=== PATIENT | male | born 2000 | race Two or more races ===

== ENCOUNTER 2025-05-20 05:46 | Emergency (ER) | payer MEDICAID, SELFPAY ==
[2025-05-20 05:48] VITALS: BMI 27.3
[2025-05-20 06:02] VITALS: BP 152/90; PULSE 96; RESP 18; TEMP 36.8; O2SAT 97
--- NOTE | 2025-05-20 06:21 | XR_ITS ---
Study: Abdomen pelvis CT. INDICATION: Mid abdominal pain for 5 days. TECHNIQUE: 3 mm slice thickness without contrast. 3 mm sagittal and coronal reformats. 2 mm axial reformats. Radiation dose 3 7 2 mGy centimeters with dose reduction technique. 1573 images at 0752 hours 20 May 2025. FINDINGS: The patient was imaged from the base of the heart to the subtrochanteric regions. The heart, lung bases and pleural spaces are normal. There is a small sliding hiatal hernia. The stomach, duodenum, small bowel, appendix and colon are morphologically normal. Minimal fluid is in the urinary bladder and wall thickness cannot be assessed accurately. The prostate gland is normal in size. Spinal alignment is normal. There is no loss of disc height or vertebral fracture. No sclerotic or lytic lesion is observed. The aorta and inferior vena cava are normal in caliber. There is no aortic plaque burden. IMPRESSION: 1. No acute diagnostic abnormality of the abdomen or pelvis. 2. Sliding hiatal hernia.
[2025-05-20 06:34] LABS: Collection Type, Urine Clean Catch; Squamous Epithelial Cell,Urine 0 /hpf (0-5)
[2025-05-20 06:37] LABS: Basophils # (Auto) 0.0 Thou/mm3 (0.0-0.2); Basophils % (Auto) 0 % (0-2.5); Eosinophils # (Auto) 0.1 Thou/mm3 (0.0-0.5); Eosinophils % (Auto) 1 % (0-10); Hematocrit 46.0 % (41.0-53.0); Hemoglobin 15.9 g/dL (13.5-16.0); Immature Granulocytes Auto 0.03 Thou/mm3 (0.00-0.00); Lymphocytes # (Auto) 1.4 Thou/mm3 (1.0-4.8); Lymphocytes % (Auto) 20 % (10-50); Mean Corpuscular HGB Conc 34.6 g/dl (31.0-37.0); Mean Corpuscular Hemoglobin 31.1 pg (25.0-35.0); Mean Corpuscular Volume 90 fL (80-100); Monocytes # (Auto) 0.6 Thou/mm3 (0.0-0.8); Monocytes % (Auto) 8 % (0-12); Neutrophils # (Auto) 4.9 Thou/mm3 (1.8-7.7); Neutrophils % (Auto) 70 % (37-80); Nucleated Red Blood Cell # 0.00 Thou/mm3 (0.00-0.00); Nucleated Red Blood Cell % 0 /100 WBC (0); Platelet Count 309 Thou/mm3 (140-440); RDW Standard Deviation 41.2 fL (35.1-43.9); Red Blood Count 5.11 Miln/mm3 (4.50-5.90); White Blood Count 7.0 Thou/mm3 (3.8-10.6)
[2025-05-20] MEDS: FAMOTIDINE 20 MG TABLET PO (06:53)
[2025-05-20] MEDS: MG HYD/AL HYD/SIME (Maalox Reg) SUSP 30 ML UDC PO (06:53)
[2025-05-20] MEDS: METOCLOPRAMIDE 5 MG TABLET 10 MG PO (06:54)
[2025-05-20] MEDS: LIDOCAINE VISCOUS 2% 15 ML UDC PO (06:54)
[2025-05-20 06:59] LABS: Alanine Aminotransferase 73 U/L (10-49); Albumin, Serum 5.2 gm/dL (3.5-5.0); Albumin/Globulin Ratio 1.7 (1.2-2.2); Alkaline Phosphatase 124 U/L (46-116); Anion Gap 10 (7-16); Aspartate Amino Transferase 69 U/L (0-34); BUN/Creatinine Ratio 13 Ratio (12-20); Bilirubin,Total 1.0 mg/dL (0.3-1.2); Blood Urea Nitrogen 9 mg/dL (9-23); Calcium 9.6 mg/dL (8.3-10.6); Calcium (Corrected) 9.6 mg/dL (8.5-10.1); Carbon Dioxide 30.0 mMol/L (20.0-31.0); Chloride 100 mMol/L (98-107); Creatinine (Component) 0.7 mg/dL (0.6-1.3); Estimated Creatinine Clearance 131.6 mL/min (>60); Globulin 3.0 gm/dL (2.3-3.5); Glucose 113 mg/dL (74-106); Lipase 35 U/L (12-53); Osmolality,Calculated 279 (275-295); Potassium 3.7 mMol/L (3.4-5.1); Sodium 140 mMol/L (136-145); Total Protein 8.2 gm/dL (5.7-8.2); Troponin I < 0.002 ng/mL (0.0-0.045); eGFR > 60 See Note
--- NOTE | 2025-05-20 07:01 | XR_ITS ---
Examination: Abdomen sonogram, Limited Date and time of exam: May 20, 2025, 0741 hours INDICATIONS: Epigastric pain and vomiting beginning 5 days ago Technique: Real-time avila scale transabdominal sonographic images of the upper abdomen obtained. Findings: Normal gallbladder Normal common bile duct 0.3 cm Pancreatic head 2.0 cm Liver 15.7 cm fatty infiltration no focal liver lesions Normal hepatopetal portal venous flow Patent IVC IMPRESSION: Normal gallbladder Normal common bile duct
[2025-05-20 07:31] LABS: Bilirubin,Urine Negative (Negative); Blood,Urine Negative (Negative); Clarity,Urine Clear (Clear/Hazy); Color,Urine Yellow (Lt Yel-Yel); Culture Indicated,Urine Not Indicated; Glucose, Urine Negative (Negative); Ketones,Urine 1+ (Negative); Leukocyte Esterase,Urine Negative (Negative); Nitrite,Urine Negative (Negative); PH,Urine 6.5 (5.0-7.0); Protein,Urine 1+ (Neg - Trace); RBC,Urine 1 /hpf (0-3); Specific Gravity,Urine 1.029 (1.001-1.035); Urobilinogen,Urine 2.0 mg/dL (0.0-1.0); WBC,Urine < 1 /hpf (0-5)
--- NOTE | 2025-05-20 08:34 | PD.EDABDPN ---
ED Abdominal Pain RME/HPI General Chief Complaint: Abdominal Pain Stated complaint: ABD PAIN/ N/V Time seen by provider: 05/20/25 06:12 Arrival date/time: 05/20/25 05:46 24-year-old male presents to the Emergency Department if complaint of abdominal pain and nausea patient report symptom onset over the last couple of weeks reports nothing makes symptoms better or worse quality aching nature no radiation of symptoms very moderate reports no treatment prior to arrival today. Limitations: no limitations Related Data Previous Rx's ?Medication ?Instructions ?Recorded metoclopramide HCl 10 mg tablet 10 mg PO Q6H PRN nausea and 05/20/25 (Reglan) vomiting #30 tabs Allergies Allergy/AdvReac Type Severity Reaction Status Date / Time No Known Allergies Allergy Verified 05/20/25 05:49 Review of Systems Review of Systems Systems Reviewed: All systems reviewed, normal except as documented Constitutional Constitutional: Reports system reviewed and no additional complaints, except as documented, Denies fever(s) and Denies headache(s) Eyes Eyes: Reports system reviewed and no additional complaints, except as documented and Denies blurry vision ENT Ears, Nose, Mouth, and Throat: Reports system reviewed and no additional complaints, except as documented, Denies headache(s), Denies nasal congestion and Denies nasal discharge Cardiovascular Cardiovascular: Reports system reviewed and no additional complaints, except as documented, Denies chest pain and Denies dyspnea Respiratory Respiratory: Reports system reviewed and no additional complaints, except as documented, Denies chest congestion, Denies cough and Denies dyspnea Gastrointestinal Gastrointestinal: Reports system reviewed and no additional complaints, except as documented and Reports abdominal pain Integumentary/Breasts Skin/Breast: Reports system reviewed and no additional complaints, except as documented and Denies rash Neurologic Neurologic: Reports system reviewed and no additional complaints, except as documented, Reports as per HPI and Denies headache(s) Past Medical History Social History SMOKING STATUS: Never smoker ED Exam General Limitations: Present no limitations General appearance: Present alert and in no apparent distress Head Head exam: Present atraumatic Eye Eye exam: Present normal appearance, PERRL and EOMI ENT ENT exam: Present normal exam, normal oropharynx and mucous membranes moist Neck Neck exam: Present normal inspection, full ROM and trachea midline Chest Chest inspection: Present normal inspection and symmetric chest wall rise Respiratory Respiratory exam: Present normal lung sounds bilaterally Cardiovascular Cardiovascular exam: Present regular rate, normal rhythm and normal heart sounds Abdominal Exam Abdominal exam: Present soft and normal bowel sounds; Absent distention, tenderness, guarding, rebound or rigidity Extremities Exam Extremities exam: Present normal inspection and full ROM Back Exam Back exam: Present normal inspection and full ROM Neurological Exam Neurological exam: Present alert, oriented X3 and CN II-XII intact Psychiatric Psychiatric exam: Present normal affect and normal mood Skin Skin exam: Present warm, dry, intact and normal color Course Quality Measures none Orders Category Date Time Status CT abdomen pelvis wo con Stat Exams 05/20/25 06:21 Completed US gall bladder Stat Exams 05/20/25 07:01 Completed CBC Stat Lab 05/20/25 06:30 Completed Comprehensive Metabolic Panel Stat Lab 05/20/25 06:30 Completed Lipase Stat Lab 05/20/25 06:30 Completed Troponin I Stat Lab 05/20/25 06:30 Completed UA, C/S IF [Urinalysis, C/S if Indicated] Stat Lab 05/20/25 06:30 Completed Famotidine [Pepcid] Med 05/20/25 06:21 Discontinued 20 mg PO X1 ONE Lidocaine 2% Viscous [Xylocaine 2% Viscous] Med 05/20/25 06:21 Discontinued 15 ml PO X1 ONE Metoclopramide [Reglan] Med 05/20/25 06:21 Discontinued 10 mg PO X1 ONE mg Hyd/Al Hyd/Kell Susp [Maalox Susp] Med 05/20/25 06:21 Discontinued 30 ml PO X1 ONE Vital Signs Vital signs: Vital Signs Temperature 98.3 F 05/20/25 06:02 Pulse Rate 96 05/20/25 06:02 Respiratory Rate 18 05/20/25 06:02 Blood Pressure 152/90 H 05/20/25 06:02 Pulse Oximetry (%) 97 05/20/25 06:02 Oxygen Delivery Method Room Air 05/20/25 06:02 O2 saturation 97% room air with normal limits Abdominal Pain MDM MDM Narrative MDM Narrative:: 24-year-old male presents to the Emergency Department if complaint of abdominal pain and nausea patient report symptom onset over the last couple of weeks reports nothing makes symptoms better or worse quality aching nature no radiation of symptoms very moderate reports no treatment prior to arrival today. On exam well-appearing does not appear look toxic no acute distress Patient soft nontender abdomen no distention Lab work and imaging obtained Imaging is unremarkable Lab work patient is mild elevation liver enzymes I suspect is secondary alcohol use patient reports drinking 8-9 beers a day bilirubin is normal Patient discharged home in no distress to follow-up with primary care doctor in the next 24 to 48 hours and for any worsening symptoms to return to the ER immediately Patient data External records reviewed:: None Clinical information provided by:: patient Social determinants that could affect healthcare access:: alcohol use Patient has the following chronic illnesses:: Alcohol abuse How is presenting disease/condition affected by chronic disease/condition?: no chronic disease Evaluation data The following diagnostics were reviewed and interpreted by me:: lab results and radiology exam(s) Lab and/or radiology exams considered but not ordered:: Labs and radiology obtained Interpretation Summary: Reviewed by me Medications / Prescriptions Medications or Prescriptions considered but not ordered:: Given Medication administrations:: Medication Administration History Discontinued Medications Al Hydrox/Mg Hydrox/Simethicone (Mg Hyd/Al Hyd/Kell (Maalox Reg) Susp 30 Ml Udc) 30 ml PO X1 ONE Stop: 05/20/25 06:22 Last Admin: 05/20/25 06:53 Dose: 30 ml Documented By: JC Famotidine (Famotidine 20 Mg Tablet) 20 mg PO X1 ONE Stop: 05/20/25 06:22 Last Admin: 05/20/25 06:53 Dose: 20 mg Documented By: JC Lidocaine HCl (Lidocaine Viscous 2% 15 Ml Udc) 15 ml PO X1 ONE Stop: 05/20/25 06:22 Last Admin: 05/20/25 06:54 Dose: 15 ml Documented By: JC Metoclopramide HCl (Metoclopramide 5 Mg Tablet) 10 mg PO X1 ONE Stop: 05/20/25 06:22 Last Admin: 05/20/25 06:54 Dose: 10 mg Documented By: JC Given Consultations Consultation(s) initiated? (list below): No Diagnosis Differential diagnosis abdominal pain: abdominal pain and acute appendicitis Most likely diagnosis given after review of the tests above:: Abdominal pain Admission Indicated Admission indicated?: not indicated Admission Request Was there a request for admission?: No Disposition Plan Disposition Plan: Discharge Discharge Attestation Discharge Attestation: The patient and all family members were given an opportunity to ask questions and understood the discharge instructions. Discharge instructions specifically effects, indications for sooner follow up or return to the emergency department, and the expected course of current diagnosis. Patient condition: Stable Discharge Plan Plan Patient Disposition: HOME (Self Care) Discharge Disposition comment: Stable Prescriptions/Referrals Prescriptions/Med Rec: New metoclopramide HCl [Reglan] 10 mg tablet 10 mg PO Q6H PRN (Reason: nausea and vomiting) Qty: 30 0RF Referrals: No Primary/Family,Physician [Primary Care Provider] - In 1 week Problem List Clinical Impression: Abdominal pain, Alcohol abuse Patient/Caregiver Discharge Instructions Education Materials: Abdominal Pain Additional Instructions: Please follow up with your primary care doctor in the next 24-48hrs for any worsening symptoms return here immediately Print Language: Lao Stand Alone Forms: [facility] Award Info., Patient Portal Info Letter PA/[employer] EQUIPMENT OPERATOR Supervising Physician PA/[employer]MENT OPERATOR Supervising Physician: Dr. Olmstead
[2025-05-20 09:07] VITALS: BP 144/89; PULSE 99; RESP 16; TEMP 36.8; O2SAT 99
== END 2025-05-20 09:08 | disposition home or self-care (01) ==
PROVIDERS: Nurse Practitioner Primary Care; Emergency Provider Emergency Medicine
DX: F10.10 Alcohol abuse, uncomplicated (principal); R10.13 Epigastric pain; R11.10 Vomiting, unspecified
CPT/HCPCS: 36415; 74176; 76705; 80053; 81001; 83690; 84484; 85025; 99283; J3490; A9270